=== PATIENT | male | born 1965 | race Caucasian/White ===

== ENCOUNTER 2019-09-18 08:07 | Day surgery (SDC) | payer BC ==
[~2019-09-18 08:07] MED LIST: Lactated Ringers 1,000 ML IV SCH; Sodium Chloride 0.9% 10 ML Syringe FLUSH PRN
[2019-09-18] MEDS ORDERED: Propofol 200 MG/20 ML SDV IV ONE (08:08)
[2019-09-18] MEDS ORDERED: Lidocaine 2% 5 ML SDV INJECT ONE (08:08)
--- NOTE | 2019-09-18 09:44 | PCM.OPNOTE ---
- General Post-Op/Procedure Note Date of Surgery/Procedure: 09/18/19 Operative Procedure(s): egd with bx Findings: duodenal ulcer Pre Op Diagnosis: melena Post-Op Diagnosis: duodenal ulcer Anesthesia Technique: MAC Primary Surgeon: Maxx Mancia Anesthesia Provider: Nikhil Dunaway Pathology: duodenum ulcer edge and 1st portion Complications: None Condition: Good Free Text/Narrative:: see dictation
--- NOTE | 2019-09-18 11:31 | OR ---
DATE OF OPERATION: 09/18/2019 SURGEON: Maxx Mancia MD PROCEDURE PERFORMED: Esophagogastroduodenoscopy with cold forceps biopsy. PREOPERATIVE DIAGNOSIS: History of acute blood loss and melena. POSTOPERATIVE DIAGNOSIS: Duodenal ulcer. INDICATIONS FOR PROCEDURE: This is a 53-year-old white male who was seen yesterday in the clinic, had a history of some melena and was also noted to have a low hemoglobin of 9.5, which was down from his normal level. He has a history of bone spurs and arthritis. Reports heavy NSAID use, taking 2 Aleve every 12 hours. The melena apparently has spontaneously resolved, but given his history, he was offered and accepted an EGD. DESCRIPTION OF OPERATION: After an excellent IV sedation was administered, the bite block was inserted. Flexible endoscope was passed without difficulty down the patient's esophagus into the stomach. Stomach was insufflated. Scope passed through pylorus and second portion of duodenum and slowly withdrawn. The following findings were noted. In the duodenum, first portion, an ulceration was noted. No visible vessel or blood clot were noted. Biopsies were taken along the ulcer edge as well as in the duodenum itself. The stomach essentially unremarkable. No biopsies were taken. In the esophagus, slight suggestion of esophagitis, but we did not do any biopsies given the overall clinical situation. The patient was taken to Recovery in good condition. /[id number] /MODL
== END 2019-09-18 10:37 | disposition home or self-care (01) ==
LOC: FB.SDS 08:07
PROVIDERS: ATTEND Surgery
DX: K26.9 Duodenal ulcer, unspecified as acute or chronic, without hemorrhage or perforation (principal); D62 Acute posthemorrhagic anemia; G89.29 Other chronic pain; M54.9 Dorsalgia, unspecified; Z79.1 Long term (current) use of non-steroidal anti-inflammatories (NSAID)
CPT/HCPCS: 43239; J2001; J2704; J7120; 88305

== ENCOUNTER 2019-11-04 08:37 | Day surgery (SDC) | payer BC ==
[2019-11-04] MEDS ORDERED: Lidocaine 2% 5 ML SDV INJECT ONE (08:38)
[2019-11-04] MEDS ORDERED: Propofol 200 MG/20 ML SDV IV ONE (08:38)
[2019-11-04] MEDS ORDERED: Sodium Chloride 0.9% 10 ML Syringe FLUSH PRN (08:45)
[2019-11-04] MEDS ORDERED: Lactated Ringers 1,000 ML IV SCH (08:45)
--- NOTE | 2019-11-04 09:11 | PCM.HP.2 ---
H&P History of Present Illness - General Date of Service: 11/04/19 Admit Problem/Dx: Admission Diagnosis/Problem Admission Diagnosis/Problem Esophagogastroduodenoscopy - History of Present Illness Initial Comments - Free Text/Narative: Pt presents for follow up egd for duodenal ulcer noted on exam in in September No complaints. - Related Data Allergies/Adverse Reactions: Allergies Allergy/AdvReac Type Severity Reaction Status Date / Time No Known Allergies Allergy Verified 10/31/19 14:09 Home Medications: Home Meds Calcium Carbonate [Calcium] 500 mg PO ASDIRECTED 09/18/19 [History] Ferrous Gluconate 324 mg PO BID 09/18/19 [History] Glucosamine/Msm/Chondroitin A [Glucosamine Chondroit MSM Tab] 2 each PO BID [History] Multivitamins/Min/Ca/FA/Iron [Thera-M] 1 each PO DAILY 09/18/19 [History] Naproxen Sodium [Aleve] 220 mg PO BID PRN 09/18/19 [History] Zolpidem Tartrate [Zolpidem Tartrate ER] 12.5 mg PO BEDTIME 09/18/19 [History] Cholecalciferol (Vitamin D3) [Vitamin D3] 1,000 unit PO DAILY 10/31/19 [History] Famotidine [Pepcid] 20 mg PO BID 10/31/19 [History] Past Medical History HEENT History: Reports: Cataract, Impaired Vision Other HEENT History: CORTICAL CATARACT OF BOTH EYES. DERMATOCHALASIS OF EYELIDS OF BOTH EYES. NUCLEAR CATARACT. PTOSIS, MECHANICAL LEFT Cardiovascular History: Reports: None Respiratory History: Reports: Sleep Apnea Other Respiratory History: CIRCADIAN RHYTHYM SLEEP DISORDER, DELAYED SLEEP PHASE TYPE. SARCOIDOSIS Genitourinary History: Reports: None Musculoskeletal History: Reports: None Neurological History: Reports: None Psychiatric History: Reports: Other (See Below) Other Psychiatric History: INSOMNIA Endocrine/Metabolic History: Reports: Obesity/BMI 30+ Hematologic History: Reports: None Immunologic History: Reports: None Oncologic (Cancer) History: Reports: None Dermatologic History: Reports: None - Past Surgical History Head Surgeries/Procedures: Reports: None HEENT Surgical History: Reports: Eye Surgery Cardiovascular Surgical History: Reports: None Respiratory Surgical History: Reports: Other (See Below) Other Respiratory Surgeries/Procedures: BRONCHOSCOPY GI Surgical History: Reports: Colonoscopy, EGD Male Surgical History: Reports: None Endocrine Surgical History: Reports: None Neurological Surgical History: Reports: None Musculoskeletal Surgical History: Reports: None Oncologic Surgical History: Reports: None Dermatological Surgical History: Reports: None Social & Family History - Caffeine Use Caffeine Use: Reports: Soda H&P Review of Systems - Review of Systems: Review Of Systems: See Below General: Reports: No Symptoms HEENT: Reports: No Symptoms Pulmonary: Reports: No Symptoms Cardiovascular: Reports: No Symptoms Gastrointestinal: Reports: No Symptoms. Denies: Melena Exam - Exam Exam: See Below - Vital Signs Weight: 127.913 kg - Exam General: Alert, Oriented Lungs: Clear to Auscultation, Normal Respiratory Effort Cardiovascular: Regular Rate, Regular Rhythm GI/Abdominal Exam: Normal Bowel Sounds, Soft, Non-Tender *Q Meaningful Use (ADM) - VTE *Q VTE Pharmacological Contraindications *Q: Patient Scheduled Surgery - Problem List (1) Duodenal ulcer, chronic SNOMED Code(s): 631907257 ICD Code: K26.7 - CHRONIC DUODENAL ULCER WITHOUT HEMORRHAGE OR PERFORATION Status: Acute Current Visit: No Problem List Initiated/Reviewed/Updated: Yes Orders Last 24hrs: Active Orders 24 hr Category Date Time Status Patient Status [ADT] Routine ADT 11/04/19 08:45 Ordered Patient to Empty Bladder [RC] ASDIRECTED Care 11/04/19 08:45 Active Verify Patient Consent Obtain [RC] ASDIRECTED Care 11/04/19 08:45 Active Nothing Per Oral Diet [DIET] Diet 11/03/19 Dinner Ordered Lactated Ringers [Ringers, Lactated] 1,000 ml Med 11/04/19 08:45 Active IV ASDIRECTED Sodium Chloride 0.9% [Saline Flush] Med 11/04/19 08:45 Active 10 ml FLUSH ASDIRECTED PRN Peripheral IV Insertion Adult [OM.PC] Routine Oth 11/04/19 08:45 Ordered Medication Orders Lactated Ringer's (Ringers, Lactated) 1,000 mls @ 125 mls/hr IV ASDIRECTED EMIGDIO Sodium Chloride (Saline Flush) 10 ml FLUSH ASDIRECTED PRN PRN Reason: Keep Vein Open Assessment/Plan Comment:: For egd procedure and risks explained to the pt to include bleeding, infection and perforation. expressed understanding and asks us to proceed. Covid negative. - Mortality Measure Prognosis:: Good
--- NOTE | 2019-11-04 09:44 | PCM.OPNOTE ---
- General Post-Op/Procedure Note Date of Surgery/Procedure: 11/04/19 Operative Procedure(s): egd Findings: healed duodenal ulcer some mild erythema in antrum Pre Op Diagnosis: hx of duodenal ulcer Post-Op Diagnosis: mild gastritis Anesthesia Technique: MAC Primary Surgeon: Maxx Mancia Anesthesia Provider: Nikhil Dunaway Pathology: none Complications: None Condition: Good Free Text/Narrative:: see dictation
--- NOTE | 2019-11-04 21:44 | OR ---
DATE OF OPERATION: 11/04/2019 SURGEON: Maxx Mancia MD PROCEDURE PERFORMED: Esophagogastroduodenoscopy. PREOPERATIVE DIAGNOSIS: History of duodenal ulcer. POSTOPERATIVE DIAGNOSIS: Mild gastritis of the antrum. INDICATIONS FOR PROCEDURE: This is a 54-year-old white male who presents for followup colonoscopy. He was diagnosed with a duodenal ulcer and had a history of melena in the past. He was offered and accepted an EGD. DESCRIPTION OF OPERATION: After an excellent IV sedation was administered, the flexible endoscope was passed without difficulty after placing the bite block. The stomach was insufflated. Scope was passed through the pylorus, second portion of duodenum and slowly withdrawn. The following findings were noted. The duodenum is unremarkable and demonstrates healed ulcer. Stomach, a couple of very small patches of some erythema in the antrum. Otherwise, the stomach was unremarkable, but no biopsies were taken. The esophagus was unremarkable. Stomach was deflated. Scope was removed. The patient instructed to follow up on a p.r.n. basis. /[id number] /MODL
== END 2019-11-04 10:52 | disposition home or self-care (01) ==
LOC: FB.SDS 08:37
PROVIDERS: ATTEND Surgery
DX: K29.70 Gastritis, unspecified, without bleeding (principal); K26.7 Chronic duodenal ulcer without hemorrhage or perforation; E66.9 Obesity, unspecified; Z87.891 Personal history of nicotine dependence; Z68.41 Body mass index [BMI] 40.0-44.9, adult
CPT/HCPCS: 43235; J2001; J2704; J7120